=== PATIENT | male | born 1970 | race Caucasian/White ===

== ENCOUNTER 2022-08-27 07:00 | Outpatient (CLI) | payer MEDICAID ==
--- NOTE | 2022-08-28 09:39 | XRAY Report ---
PROCEDURE: Shoulder 3 View LT INDICATIONS: LEFT SHOULDER STRAIN TECHNIQUE: 3 views of the shoulder were acquired. COMPARISON: None. FINDINGS: Bones: No fractures or dislocations. Moderate acromioclavicular joint osteoarthritic changes are see n with joint space narrowing and marginal osteophyte formation. No suspicious bony lesions. Visualiz ed ribs appear intact. Soft tissues: No suspicious soft tissue calcifications. IMPRESSION: Moderate acromioclavicular joint osteoarthritis. No fracture or dislocation. No gross soft tissue abn ormalities. Reviewed by: Sarath Zhao MD on 08/28/2022 9:38 AM PDT Approved by: Sarath Zhao MD on 08/28/2022 9:38 AM PDT Station ID: [id number]
--- NOTE | 2022-08-28 09:43 | XRAY Report ---
PROCEDURE: Humerus LT INDICATIONS: LEFT SHOULDER PAIN TECHNIQUE: 2 views of the humerus were acquired. COMPARISON: None. FINDINGS: Bones: Acute slightly comminuted oblique fracture through proximal left humeral shaft is seen with d orsal and lateral displacement and up to 1.2 cm diastases at fracture site. No suspicious bony lesion s. Soft tissues: No suspicious soft tissue calcifications or masses. IMPRESSION: Acute slightly comminuted and displaced left proximal humeral shaft fracture as above. Reviewed by: Sarath Zhao MD on 08/28/2022 9:41 AM PDT Approved by: Sarath Zhao MD on 08/28/2022 9:41 AM PDT Station ID: [id number]
== END 2022-08-27 23:59 | disposition home or self-care (01) ==
LOC: DI.S 07:00
PROVIDERS: ATTEND Emergency Medicine
DX: S42.352A Displaced comminuted fracture of shaft of humerus, left arm, initial encounter for closed fracture (principal); M19.012 Primary osteoarthritis, left shoulder

== ENCOUNTER 2022-08-31 08:00 | Outpatient (CLI) | payer MEDICAID ==
--- NOTE | 2022-08-31 12:28 | XRAY Report ---
PROCEDURE: Humerus LT INDICATIONS: LEFT HUMERUS FRATURE POST BRACE TECHNIQUE: 3 views of the humerus were acquired. COMPARISON: 08/27/2022 FINDINGS: Bones: Moderately displaced oblique mid humeral shaft fracture is similar compared to 08/27/2022. Soft tissues: No suspicious calcifications. IMPRESSION: Similar appearance of moderately displaced oblique mid humeral shaft fracture. Consider cross-section al imaging if there is any clinical concern for underlying lesion. Reviewed by: Jacob Wood MD on 08/31/2022 12:26 PM PDT Approved by: Jacob Wood MD on 08/31/2022 12:26 PM PDT Station ID: [id number]
--- NOTE | 2022-08-31 16:53 | XRAY Report ---
PROCEDURE: Humerus LT INDICATIONS: LEFT HUMERUS FRACTURE TECHNIQUE: 2 views of the humerus were acquired. COMPARISON: Plain films dated 08/27/2022 FINDINGS: Bones: There is a moderately displaced fracture of the midportion of the humerus, which is not signi ficantly changed in alignment. No suspicious bony lesions. Soft tissues: No suspicious soft tissue calcifications or masses. IMPRESSION: No change in humeral fracture. Reviewed by: Adonay Palmer MD on 08/31/2022 4:51 PM PDT Approved by: Adonay Palmer MD on 08/31/2022 4:51 PM PDT Station ID: [id number]
== END 2022-08-31 23:59 | disposition home or self-care (01) ==
LOC: DI.WOS 08:00
PROVIDERS: ATTEND Orthopaedic Surgery
DX: S42.342D Displaced spiral fracture of shaft of humerus, left arm, subsequent encounter for fracture with routine healing (principal)

== ENCOUNTER 2022-09-02 06:36 | Day surgery (SDC) | payer MEDICAID ==
[~2022-09-02 06:36] MED LIST: ACETAMINOPHEN 500 MG TABLET PO ONE; CELECOXIB 100 MG CAPSULE PO ONE; ceFAZolin 2 GM VIAL ONE
[2022-09-02] MEDS ORDERED: fentaNYL 100 MCG/2 ML VIAL ONE (06:51)
[2022-09-02] MEDS ORDERED: MIDAZOLAM 2 MG/2 ML VIAL ONE (06:51)
[2022-09-02] MEDS ORDERED: ROCURONIUM 50 MG/5 ML VIAL ONE (06:53)
[2022-09-02] MEDS ORDERED: PROPOFOL 200 MG/20 ML VIAL IVP ONE (06:53)
[2022-09-02] MEDS ORDERED: ROPIVACAINE 0.5% PF 20 ML VIAL ONE (06:56)
[2022-09-02] MEDS ORDERED: LIDOCAINE-PF 2% 10 ML AMP SUBQ ONE (06:56)
[2022-09-02] MEDS ORDERED: DEXAMETHASONE 4 MG/ML VIAL ONE (06:57)
--- NOTE | 2022-09-02 06:58 | ANESTHESIA ---
Pre-Anesthesia VS, & Labs - Diagnosis L humerus fx - Procedure ORIF L humerus Height: 5 ft 10 in Weight (kg): 72.5 kg Body Mass Index: 22.9 BMI Classification: Normal - NPO Other - Lab Results Lab results reviewed: Yes Home Medications and Allergies Home Medications: Ambulatory Orders HYDROcod/ACETAM 5/325 [[place] 5/325] 5 mg PO PRN PRN 09/02/22 Ibuprofen [Motrin] 1 tablet PO Q8H PRN 09/02/22 Allergies/Adverse Reactions: Allergies Allergy/AdvReac Type Severity Reaction Status Date / Time No Known Drug Allergies Allergy Verified 09/02/22 07:04 Anes History & Medical History - Anesthetic History Anesthesia Complications: reports: No previous complications Family history of Anesthesia Complications: Denies Family history of Malignant Hyperthermia: Denies - Medical History Cardiovascular: reports: None Musculoskeletal: reports: Other (L humerus fx) Smoking Status: Current every day smoker Psychosocial: reports: Anxiety, Substance abuse, Alcohol, Anxiolytic History of Cancer?: No Exam General: Alert, Oriented x3, Cooperative Dental: Poor dentition Mouth Openin Fingerbreadth Neck Mobility: Normal Mallampati classification: II Respiratory: Lungs clear, Normal breath sounds, No respiratory distress Cardiovascular: Regular rate Neurological: Normal speech Mental/Cognitive Status: Alert/Oriented X3, Normal for patient Cognitive Status: Within normal limits Plan Anesthesia Type: General, Supraclavicular Block Regional Block: Per Surgeon's request for Post Op pain control Consent for Procedure(s) Verified and Reviewed: No Code Status: Attempt Resuscitation ASA classification: 2-Mild systemic disease Is this case an emergency?: No
[2022-09-02] MEDS ORDERED: SEVOFLURANE 250 ML LIQUID INH ONE (07:00)
[2022-09-02 07:07] VITALS: BP 140/99
[2022-09-02] MEDS ORDERED: LACTATED RINGERS 1,000 ML IV ONE (07:07)
[2022-09-02] MEDS ORDERED: VANCOMYCIN 1 GM VIAL ONE (07:16)
[2022-09-02] MEDS ORDERED: BUPIVACAINE 0.5% PF 10 ML VIAL ONE (07:45)
[2022-09-02] MEDS ORDERED: TRANEXAMIC ACID 1,000 MG/10 ML VIAL ONE (10:37)
== END 2022-09-02 06:37 | disposition home or self-care (01) ==
LOC: SDS 06:36
PROVIDERS: ATTEND Orthopaedic Surgery
DX: S42.302A Unspecified fracture of shaft of humerus, left arm, initial encounter for closed fracture (principal); Z53.09 Procedure and treatment not carried out because of other contraindication
CPT/HCPCS: A9270; J3490; J7120